=== PATIENT | female | born 1950 | race Caucasian/White ===

== ENCOUNTER → 2018-01-27 | Outpatient (CLI) | payer OTHER ==
[~2018-01-27] MED LIST: CIPR-255 PO; PARO1TAB27 PO
--- NOTE | 2018-01-27 13:07 | DIAGNOSTIC IMAGING REPORT ---
CT LUNG SCREENING, LOW DOSE WITH COMPUTER-AIDED DETECTION (CAD) CLINICAL HISTORY: 67 years-old Female presenting with NICOTINE DEPENDENCE, CURRENT SMOKER. CT DOSE (mGy.cm): The estimated cumulative dose is 87.10 mGy.cm. TECHNIQUE: Multidetector CT imaging of the chest was performed without the use of intravenous contrast. IV contrast: None. A dose lowering technique was used consistent with the principles of ALARA (as low as reasonably achievable). Additional postprocessing was performed on a separate [employer] workstation by the radiologist for computer-aided detection and 3-D volumetric segmentation of pulmonary nodules. COMPARISON: None. FINDINGS: Pickle Sorter topogram: Cholecystectomy clips. On soft tissue windows, normal thyroid and thoracic inlet. Scattered subcentimeter lymph nodes in the mediastinum, many partially calcified. Calcified right hilar lymph nodes also noted. Atherosclerosis of the aorta. Normal heart size. Mild three-vessel coronary artery calcification. No pericardial or pleural effusion. Cholecystectomy clips. Pneumobilia noted. On lung windows, mild emphysema. Calcified granuloma with associated atelectasis in the medial segment of the right middle lobe. Calcified granuloma also noted in the lower lobes. Minimal dependent groundglass opacities at the right lower lobe atelectasis. No significant bronchial wall thickening. Central airways patent. On bone windows, degenerative changes of the spine. CAD FINDINGS: Overall Lung RADS Category: 1 Lung RADS Management Recommendation: Continue annual lung cancer screening. Lung RADS Follow Up Date: 2019-01-27 Lung RADS Nodule ID: IMPRESSION: 1. No focal pulmonary nodule or infiltrate. Continue annual lung screening. 2. Emphysema. 3. Mild three-vessel coronary artery calcification. 4. Pneumobilia may relate to prior sphincterotomy or surgical intervention. Correlate clinically. Electronically signed by: Cholo Mancilla M.D. 01/27/2018 1:06 PM Dictated Date/Time: 01/27/2018 1:00 PM
== END | disposition home or self-care (01) ==
LOC: C.CTS 12:00
PROVIDERS: ATTEND Physician Assistant
DX: R10.9 Unspecified abdominal pain (principal); Z87.891 Personal history of nicotine dependence; J43.9 Emphysema, unspecified; K83.8 Other specified diseases of biliary tract